=== PATIENT | male | born 1980 | race Caucasian/White ===

== ENCOUNTER 2022-11-08 08:02 | Outpatient (CLI) | payer OTHER, SELFPAY | END 2022-11-08 08:03 | disposition home or self-care (01) | LOC: NFLDREF 11-09 14:16 | PROVIDERS: PCP Family Medicine; Referring Provider Family Medicine; Visit Provider Family Medicine | DX: E78.5 Hyperlipidemia, unspecified (principal) | CPT/HCPCS: 80053; 80061 ==

== ENCOUNTER 2023-02-23 13:06 | Outpatient (CLI) | payer OTHER, SELFPAY | END 2023-02-23 13:07 | disposition home or self-care (01) | LOC: NFLDREF 13:07 | PROVIDERS: PCP Family Medicine; Visit Provider Family Medicine | DX: I10 Essential (primary) hypertension (principal) | CPT/HCPCS: 80048 ==

== ENCOUNTER 2024-04-23 08:02 | Outpatient (CLI) | payer OTHER, SELFPAY | END 2024-04-23 08:03 | disposition home or self-care (01) | PROVIDERS: PCP Family Medicine; Visit Provider Family Medicine | DX: Z00.00 Encounter for general adult medical examination without abnormal findings (principal); E78.5 Hyperlipidemia, unspecified; I10 Essential (primary) hypertension | CPT/HCPCS: 80053; 80061 ==

== ENCOUNTER 2024-05-17 09:07 | Outpatient (CLI) | payer OTHER, SELFPAY ==
--- NOTE | 2024-05-17 10:53 | W.ANESCHARGE ---
Anesthesia Charges Start Date/Time Anesthesia Start Date: 05/17/24 Anesthesia Start Time: 10:19 Stop Date/Time Anesthesia Stop Date: 05/17/24 Anesthesia Stop Time: 10:50
== END 2024-05-17 09:08 | disposition home or self-care (01) ==
LOC: OP CLINIC 09:07
PROVIDERS: PCP Family Medicine; Visit Provider Surgery
DX: Z12.11 Encounter for screening for malignant neoplasm of colon (principal); Z83.719 Family history of colon polyps, unspecified; D12.3 Benign neoplasm of transverse colon; D12.0 Benign neoplasm of cecum
CPT/HCPCS: 00811; 00812; 45385; 88305; J2704